=== PATIENT | male | born 1940 | race African-American/Black ===

== ENCOUNTER 2017-03-06 13:42 | Emergency (ER) | payer OTHER ==
[2017-03-06 15:12] VITALS: BP 117/66
== END 2017-03-06 15:50 | disposition left against medical advice (07) ==
LOC: ED 13:42
DX: R55 Syncope and collapse (principal); I10 Essential (primary) hypertension; M10.9 Gout, unspecified; R00.1 Bradycardia, unspecified; S50.311A Abrasion of right elbow, initial encounter; Z79.899 Other long term (current) drug therapy; X58.XXXA Exposure to other specified factors, initial encounter; Y93.89 Activity, other specified; Y92.89 Other specified places as the place of occurrence of the external cause; Y99.8 Other external cause status